=== PATIENT | male | born 1980 | race Hispanic/Latino ===

== ENCOUNTER 2020-08-29 14:15 | Emergency (ER) | payer SELFPAY ==
[~2020-08-29] VITALS: Ht 170.2 cm; Wt 72.6 kg
[2020-08-29] MEDS ORDERED: IBUPROFEN 200 MG TAB PO SCH (14:45)
[2020-08-29] MEDS ORDERED: PREDNISONE20 MG PO (17:25)
[2020-08-29] MEDS ORDERED: AZITHROMYCIN250 MG PO (17:25)
[2020-08-29] MEDS ORDERED: ONDANSETRON ODT4 MG PO (17:25)
[2020-08-29 17:33] VITALS: BP 112/77
== END 2020-08-29 17:36 | disposition home or self-care (01) ==
LOC: ER 14:58
DX: B34.9 Viral infection, unspecified (principal); R11.2 Nausea with vomiting, unspecified; R51.9 Headache, unspecified; R53.81 Other malaise
CPT/HCPCS: 83518; 87070; 99283; U0002